=== PATIENT | male | born 1990 | race Caucasian/White ===

== ENCOUNTER → 2017-01-12 | Outpatient (CLI) | payer OTHER ==
--- NOTE | 2017-01-13 16:05 | MR ---
EXAMINATION TYPE: MR lspine/sacrum wo con DATE OF EXAM: 01/12/2017 COMPARISON: NONE HISTORY: low back pain CONTRAST: None TECHNIQUE: Multiplanar, multisequence images of the lumbar spine were acquired. FINDINGS: L5-S1: There is a large left paracentral disc herniation with significant thecal sac compression. Ner ve root compression within the thecal sac is evident. There is moderate right and left foraminal sten osis. AP spinal canal stenosis posterior to the disc herniation is present. L4-L5: There is a large central disc herniation with significant thecal sac compression. Borderline s chino canal stenosis is present. Neural foramen are patent. Disc desiccation is noted. L3-L4: Mild disc bulge is present with anterior thecal sac contact. No AP spinal canal stenosis is pr esent. Facet hypertrophy is present. Disc hydration levels normal. No spinal canal stenosis. No for aminal stenosis. Neural foramen are patent.. L2-L3: No significant disc bulge or disc herniation. No spinal canal stenosis. No foraminal stenosi s. . L1-L2: No significant disc bulge or disc herniation. No spinal canal stenosis. No foraminal stenosi s. . T12-L1: No significant disc bulge or disc herniation. No spinal canal stenosis. No foraminal stenos is. . Sacrum is evaluated in multiple pulse sequences. Sacroiliac joints appear intact. Alignment is normal . IMPRESSION: 1. Large left paracentral disc herniation L5-S1 with multiple nerve root compression within the theca l sac. 2. Large disc herniation L4-5 centrally. 3. Spinal canal stenosis is due to disc herniations at L5-S1 and to a lesser degree L4-5. 4. Mild disc bulge L3-4 with anterior thecal sac contact. 5. Normal sacrum
== END | disposition home or self-care (01) ==
LOC: RADMRIMAIN 10:47
PROVIDERS: ATTEND Family Medicine
DX: M48.07 Spinal stenosis, lumbosacral region (principal); M51.17 Intervertebral disc disorders with radiculopathy, lumbosacral region
CPT/HCPCS: 72148; 72195

== ENCOUNTER → 2018-10-21 | Outpatient (CLI) | payer OTHER ==
--- NOTE | 2018-10-21 08:47 | MR ---
EXAMINATION TYPE: MR knee RT wo con DATE OF EXAM: 10/21/2018 COMPARISON: NONE HISTORY: Traumatic R knee pain per order. Pain and locking and swelling over last few months since kn ee surgery per patient. History of football injury with torn ACL and probable MCL per patient. TECHNIQUE: Multiplanar, multisequence images of the knee is performed without IV contrast. FINDINGS: MEDIAL MENISCUS: Anterior and posterior horns are intact without tear. LATERAL MENISCUS: Anterior and posterior horns are intact without tear. CRUCIATE LIGAMENTS: The posterior cruciate ligament is intact and unremarkable. There is artifact fro m prior ACL repair, recurrent tear is suspected as there is anterior translation of proximal tibia re lative to the distal femur and nonvisualization of intact fibers in the intercondylar notch. COLLATERAL LIGAMENTS: The medial collateral ligament and lateral collateral ligament complex are inta ct and unremarkable. EXTENSOR MECHANISM: Visualized quadriceps and patellar tendons are intact. EFFUSION: Fairly moderate size suprapatellar joint effusion extends laterally. POPLITEAL CYST: There is multi septated moderate size popliteal/banerjee cyst measuring 6.9 cm sagittal image 13. TRICOMPARTMENT SPACES: There is mild to moderate narrowing and spurring patellofemoral compartment qu ite pronounced for patient's age. There is relative preservation of lateral and medial tibiofemoral c ompartments. CARTILAGE: Tricompartment articular cartilage is fairly well preserved. BONE MARROW SIGNAL: No suspicious edema or osteochondral injury identified. OTHER: No additional significant abnormality is appreciated. IMPRESSION: 1. Recurrent ACL tear suspected. 2. Moderate suprapatellar joint effusion. 3. Moderate size multiseptated Banerjee's cyst. 4. 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
== END ==
LOC: RADMRIMAIN 08:07
PROVIDERS: ATTEND Family Medicine
DX: M71.21 Synovial cyst of popliteal space [Baker], right knee (principal); M17.11 Unilateral primary osteoarthritis, right knee

== ENCOUNTER → 2023-05-11 | Outpatient (CLI) | payer OTHER ==
[2023-05-12 01:58] LABS: Basophils # (A) 0.05 X 10*3/uL (0.00-0.10); Basophils % (A) 0.5 %; Eosinophils # (A) 0.21 X 10*3/uL (0.04-0.35); HCT 40.6 % (39.6-50.0); HGB 13.6 d/dL (13.0-17.0); Lymphocytes # (A) 2.82 X 10*3/uL (0.90-5.00); Lymphocytes % (A) 26.5 %; MCH 32.5 pg (27.0-32.0); MCHC 33.5 d/dL (32.0-37.0); MCV 96.9 FL (80.0-97.0); Mean Platelet Volume 10.8 FL (9.5-12.2); Monocytes # (A) 0.88 X 10*3/uL (0.20-1.00); Monocytes % (A) 8.3 %; NRBC Per 100 WBC 0 X 10*3/uL (0.00-0.01); Neutrophils # (A) 6.66 X 10*3/uL (1.80-7.70); Neutrophils % (A) 62.4 %; Platelet Count 196 X 10*3/uL (140-440); RBC 4.19 X 10*6/uL (4.40-5.60); RDW 13.2 % (11.5-14.5); WBC 10.65 X 10*3/uL (4.50-10.00)
[2023-05-12 02:13] LABS: ALT 38 U/L (10-49); AST 35 U/L (14-35); Albumin 4.7 d/dL (3.8-4.9); Albumin/Globulin Ratio 2.14 Ratio (1.60-3.17); Alkaline Phosphatase 101 U/L (41-126); Blood Urea Nitrogen 16.8 mg/dL (9.0-27.0); C Reactive Protein <0.30 mg/dL (0.00-0.80); Calcium 9.4 mg/dL (8.7-10.3); Carbon Dioxide 23.9 mmol/L (21.6-31.8); Chloride 102 mmol/L (96-109); Globulin 2.2 d/dL (1.6-3.3); Glucose 91 mg/dL (70-110); Potassium 4.2 mmol/L (3.5-5.5); Sodium 141 mmol/L (135-145); Total Bilirubin 0.2 mg/dL (0.3-1.2); Total Protein 6.9 d/dL (6.2-8.2)
[2023-05-12 02:24] LABS: Erythrocyte Sedimentation Rate 10 mm/Hr (0-15)
[2023-05-12 04:39] LABS: Gliadin AB IgA, Deaminated Negative (Negative); Gliadin AB IgA, Unit <0.5 U/mL; Gliadin AB IgG, Deaminated Negative (Negative); Gliadin AB IgG, Unit <0.4 U/mL
== END | disposition home or self-care (01) ==
LOC: LABWHC1 15:34
PROVIDERS: ATTEND Internal Medicine Gastroenterology
DX: R19.4 Change in bowel habit (principal)
CPT/HCPCS: 36415; 80053; 83516; 85025; 85652; 86140

== ENCOUNTER 2023-06-11 10:47 | Day surgery (SDC) | payer OTHER ==
[2023-06-11] MEDS ORDERED: LACTATED RINGERS 1,000 ML IV ONE (12:18)
[2023-06-11 12:30] VITALS: TEMP 98.1
[2023-06-11] MEDS ORDERED: LIDOCAINE 1% INJ 10MG/ML (20 ML MDV) ONE (12:30)
[2023-06-11] MEDS ORDERED: PROPOFOL 10 MG/ML 20 ML VIAL IV ONE (12:30)
[2023-06-11] MEDS ORDERED: fentaNYL (PF) 50 MCG/ML 2 ML AMP ONE (12:30)
--- NOTE | 2023-06-11 12:50 | P.PCN ---
Date of Procedure: 06/11/23 Procedure(s) Performed: Brief history: Patient is a pleasant 33-year-old white male scheduled for an elective upper endoscopy as well as colonoscopy as a part of evaluation of abdominal pain, nausea vomiting, change in bowel habits and rectal bleeding for the last 15 years duration. He has bowel movements anywhere from 10-15 a day which are loose to watery in consistency with occasional blood in the stool. His daily persistent nausea. Procedure performed: Esophagogastroduodenoscopy with biopsy Colonoscopy with biopsy Preoperative diagnosis: Abdominal pain/nausea Chronic diarrhea and intermittent rectal bleeding Anesthesia: MAC Procedure: After informed consent was obtained from the patient was brought into the endoscopy unit and IV sedation was administered by anesthesia under continuous monitoring. Initially upper endoscopy was done. The Olympus GF 160 video endoscope was inserted inserted into the mouth and esophagus intubated without any difficulty and was gradually advanced into the stomach and duodenum and carefully examined. The bulb and second part of the duodenum appeared normal. Biopsies were done from the duodenum to rule out celiac disease. The scope was then withdrawn into the stomach adequately insufflated with air and upon careful examination the antrum had mild gastritis and biopsies were done from this area. Mucosa body, cardia and fundus appeared normal. The scope was then withdrawn into the esophagus. The GE junction was located at 40 cm to the i ncisors. It appeared regular with superficial erosions consistent with LA grade B reflux esophagitis. Rest of the esophagus appeared normal. Patient tolerated the procedure well. At this time the patient continued to remain sedation. Initial digital rectal examination was normal. Olympus CF 160 video colonoscope was then inserted into the rectum and gradually advanced to the cecum without any difficulty. Careful examination was performed as the scope was gradually being withdrawn. The prep was excellent. Terminal ileum was intubated and 20 cm visualized and appeared normal. The cecum, ascending colon, transverse colon, descending colon, sigmoid colon and rectum appeared normal. Biopsies were done from ascending and descending colon to rule out microscopic/Collagenous colitis. Retroflexion was performed in the rectum and grade 2 internal hemorrhoids were noted. Patient tolerated the procedure well. Impression: 1. Upper endoscopy revealed a lengthy gastritis and linear erosions in the distal esophagus consistent with LA grade B reflux esophagitis. 2. Colonoscopy was within normal limits with no evidence of colorectal neoplasia. Grade 2 internal hemorrhoids Recommendations: Findings of this examination were discussed with the patient as well as his family. He was advised to follow with the biopsy results. He'll be seen in office in 2 weeks.
[2023-06-11 13:17] VITALS: BP 113/52; PULSE 2; RESP 16
== END 2023-06-11 13:25 | disposition home or self-care (01) ==
LOC: ORWHC2ENDO 10:47
PROVIDERS: ATTEND Internal Medicine Gastroenterology
DX: K31.89 Other diseases of stomach and duodenum (principal); K29.70 Gastritis, unspecified, without bleeding; K21.00 Gastro-esophageal reflux disease with esophagitis, without bleeding; K64.1 Second degree hemorrhoids; K52.9 Noninfective gastroenteritis and colitis, unspecified; F17.210 Nicotine dependence, cigarettes, uncomplicated; F12.90 Cannabis use, unspecified, uncomplicated; Z96.659 Presence of unspecified artificial knee joint; Z98.890 Other specified postprocedural states
CPT/HCPCS: 88305; 45380; 43239; J2001; J3010; J2704